=== PATIENT | male | born 1980 | race Caucasian/White ===

== ENCOUNTER 2017-05-21 22:03 | Emergency (ER) | payer SELFPAY ==
[~2017-05-21] VITALS: Ht 177.8 cm; Wt 74.8 kg
[2017-05-21 22:09] VITALS: Ht 177.8 cm; Wt 74.8 kg
[2017-05-22 01:32] VITALS: BP 109/69
== END 2017-05-22 01:32 | disposition home or self-care (01) ==
LOC: ED 22:03
DX: J11.1 Influenza due to unidentified influenza virus with other respiratory manifestations (principal)
CPT/HCPCS: 87804; J1885; Q0092

== ENCOUNTER 2019-01-21 00:40 | Inpatient (IN) | payer MEDICAID ==
[~2019-01-21] VITALS: Ht 152.4 cm; Wt 70.8 kg
[2019-01-21 00:44] VITALS: Ht 152.4 cm; Wt 70.8 kg
--- NOTE | 2019-01-21 00:58 | NUR ---
PT PRESENTS TO ED S/P INGESTING 13 TABLETS OF 10MG CYCLOBENZAPRINE AROUND 1900. PT REFUSES TO ANSWER QUESTIONS ABOUT SI/HI. PT STATES "I DON'T WANT TO BE HERE" BUT DOES NOT ELABORATE. PT STATES TO X1 EPISODE OF VOMITING BUT UNAWARE WHAT TIME AND IF THERE WERE PILLS IN HIS VOMIT. PT NOTED WITH MUSCLE CONTRACTIONS THAT HAPPEN [id number]. PT PLACED ON FULL CM, VITALS STABLE AT THIS TIME. PT DENIES PAIN. PT AWAKE AND ALERT, REFUSING TO SPEAK AT THIS TIME, RESP TACHYPNIC LUNG SOUNDS CLEAR. PT SIGNIFICANT OTHER AT BEDSIDE, STATES THAT IT TOOK THEM A WHILE TO COME IN BECAUSE PT WAS REFUSING TO COME. PT NOTED WITH ANKLE TRACKING BRACELET TO THE R ANKLE.
--- NOTE | 2019-01-21 01:16 | NUR ---
SPOKE WITH POISION CONTROL, MONITOR PT FOR ANTICHOLINERGIC EFFECTS, HYPOTENSION, SEDATION, AND SEIZURES. PER POISION CONTROL, TREAT SEIZURES WITH BENZOS CAUTIOUSLY. MONITOR AIRWAY CLOSELY. DRAW USUAL LABS AND MONITOR FOR EKG CHANGES. MONITOR FOR AT LEAST 6 HRS
--- NOTE | 2019-01-21 01:23 | NUR ---
PT MOVED TO BED 3 FOR CLOSER MONITORING.
--- NOTE | 2019-01-21 01:46 | NUR ---
PT ATTEMPTED TO PROVIDE URINE SPECIMEN WITH NO SUCCESS. PT INFORMED THAT WE NEED A URINE SPECIMEN SOON POSSIBLE.
[2019-01-21 01:55] LABS: CARBON DIOXIDE 24.3 mmol/L (21-32); CHLORIDE SERUM 101 mmol/L (98-107); CREATININE SERUM 0.8 mg/dL (0.7-1.3); GFR1 > 60 mL/min; GLUCOSE SERUM 137 mg/dL (74-106); POTASSIUM SERUM 3.2 mmol/L (3.5-5.1); SODIUM SERUM 139 mmol/L (136-145)
[2019-01-21 01:59] LABS: ALKALINE PHOSPHATASE 91 U/L (46-116); ALT/SGPT 64 U/L (16-63); AST/SGOT 23 U/L (15-37); BILIRUBIN TOTAL 0.93 mg/dL (0.20-1.00); TOTAL PROTEIN, SERUM 7.8 g/dL (6.4-8.2)
[2019-01-21 02:02] LABS: BASOPHIL % 0.6 % (0-2); PLATELET COUNT 252 x10^3mcL (130-400); RED CELL DISTRIBUTION WIDTH 12.8 % (11.5-14.5)
--- NOTE | 2019-01-21 02:34 | NUR ---
PT RESTING IN A POSITION OF COMFORT AT THIS TIME, AOX4, RESP EVEN AND UNLABORED, NO ACUTE DISTRESS NOTED. PT REMAINS IN VIEW OF NURSE'S STATION.
--- NOTE | 2019-01-21 03:53 | NUR ---
PT RESTING IN A POSITION OF COMFORT, AOX4, RESP EVEN AND UNLABORED, NO ACUTE DISTRESS NOTED.
--- NOTE | 2019-01-21 04:11 | NUR ---
PT REPORT GIVEN TO DR CASTILLO FROM TELE PSYCH.
--- NOTE | 2019-01-21 04:20 | NUR ---
TELE PSYCH EVALUATION IN PROGRESS, MALIA EMT AT BEDSIDE FOR TRANSLATION.
--- NOTE | 2019-01-21 05:30 | NUR ---
PT NO LONGER NOTED WITH MUSCLE TWITCHING.
--- NOTE | 2019-01-21 05:35 | NUR ---
ALLISON FROM POISION CONTROL CALLED TO FOLLW UP ON PT CONDITION, REPORT GIVEN.
[2019-01-21 05:59] LABS: UA SPECIFIC GRAVITY <=1.005 (1.005-1.035); microscopic required? YES; urine erythrocyte NEGATIVE (NEGATIVE)
--- NOTE | 2019-01-21 06:35 | NUR ---
ACCORDING TO DR PASCUAL, PSYCHIATRIST PT MEETS 5150 [facility]ITERIA FOR [facility] TO SELF.
--- NOTE | 2019-01-21 07:27 | NUR ---
GATHERED PATIENTS BELONGINGS PANTS SHIRTS SOCKS PHONE AND LABLED AND PUT IN RADIO ROOM PER 5150 HOLD
--- NOTE | 2019-01-21 09:10 | NUR ---
BREAKFAST TRAY OFFRED.
--- NOTE | 2019-01-21 09:52 | NUR ---
PT ATE BREAKFAST WELL, 100%. VSS.
--- NOTE | 2019-01-21 12:10 | NUR ---
PT MOVED TO BED 5.
--- NOTE | 2019-01-21 12:20 | NUR ---
LUNCH TRAY GIVEN.
--- NOTE | 2019-01-21 13:33 | NUR ---
PLACED ON 5150 HOLD BY MARTHA CALVO. PLACED ON CHART.
--- NOTE | 2019-01-21 15:20 | NUR ---
PT IN GURNEY IN RIGHT LATERAL POSITION, AWAKE ALERT, RESP E/U, NO DISTRESS. PT NOTIFIED THAT URINE IS NEEDED. URINAL AT BEDSIDE.
[2019-01-21 16:18] LABS: AMPHETAMINE QUAL UR POSITIVE (See below)
--- NOTE | 2019-01-21 17:01 | NUR ---
PT TOILETED ABOUT 500CC URINE. PT REPOSITIONS SELF. NO SOB OR CHEST PAIN. PT REQUESTED TO SPEAK TO . VERBAL CONTRACT NOT TO ARGUE ON PHONE. PT GIVEN CELL PHONE. IN NO ACUTE DISTRESS AT THIS TIME.
--- NOTE | 2019-01-21 17:13 | NUR ---
PT PROVIDED WITH DINNER
--- NOTE | 2019-01-21 17:54 | NUR ---
AT BEDSIDE. PT IN NO ACUTE DISTRESS AT THIS TIME
--- NOTE | 2019-01-21 19:06 | NUR ---
REPORT GIVEN TO ALESSANDRO FLORES TO RESUME CARE OF PT
--- NOTE | 2019-01-21 20:18 | NUR ---
PT RESTING IN BED. NO ACUTE DISTRESS NOTED. AT BEDSIDE.
--- NOTE | 2019-01-21 22:06 | NUR ---
PT DENIES PAIN. RESTING AT THIS TIME. WILL CONTINUE TO MONITOR.
--- NOTE | 2019-01-21 23:12 | NUR ---
TELE PSYCH MONITOR AT BEDSIDE.
--- NOTE | 2019-01-22 00:33 | NUR ---
PT RESTING IN BED IN POSTIION OF COMFORT. STS ALL NEEDS ATTENDED TO AT THIS TIME.
--- NOTE | 2019-01-22 01:21 | NUR ---
REPORT GIVEN TO SANRDA ASHRAF.
--- NOTE | 2019-01-22 01:21 | NUR ---
REPORT GIVEN TO SANDRA ASHRAF.
--- NOTE | 2019-01-22 01:45 | NUR ---
ADMITTED PT FROM ER 5150 HOLD SUICIDAL IDEATION.FLEXERIL OVERDOSE.A/O X4 SPEAKS K[place] ONLY.DENIES CHESTPAIN AT THIS TIME.ADMISSION CARE RENDERED.SITTER AT BEDSIDE.WILL CONTINUE TO MONITOR.
[2019-01-22 01:54] VITALS: BP 103/64
--- NOTE | 2019-01-22 04:46 | NUR ---
PT SLEPT SINCE ADMISSION.SITTER AT BEDSIDE.DENIES SUICIDAL IDEATION.NO SEIZURE ACTIVITY NOTED.PADDED RAILS IN PLACED.WILL CONTINUE TO MONITOR.
--- NOTE | 2019-01-22 06:18 | NUR ---
[facility] still actively working on finding placement for this pt. No openings overnight per nightshift. Will contact with any updates.
[2019-01-22 06:25] VITALS: BP 107/74
--- NOTE | 2019-01-22 07:20 | NUR ---
RECEIVED PT IN NO ACUTE DISTRESS. RESTING IN BED. AAOX4. RESP EVEN AND UNLABORED ON RA. SEIZURE PRECAUTIONS IN PLACE. 1:1 SITTER AT BEDSIDE. IV TO LAC, NO REDNESS OR SWELLING TO IV SITE. BED IN LOW POSITION, CALL LIGHT WITHIN REACH. WILL CONTINUE TO MONITOR.
[2019-01-22 08:53] LABS: CALCIUM 8.5 mg/dL (8.5-10.1); CARBON DIOXIDE 28.9 mmol/L (21-32); CHLORIDE SERUM 106 mmol/L (98-107); CREATININE SERUM 0.9 mg/dL (0.7-1.3); GFR1 > 60 mL/min; GLUCOSE SERUM 109 mg/dL (74-106); PHOSPHOROUS 3.3 mg/dL (2.5-4.9); POTASSIUM SERUM 4.3 mmol/L (3.5-5.1); SODIUM SERUM 141 mmol/L (136-145)
[2019-01-22 08:57] LABS: BASOPHIL % 0.3 % (0-2); PLATELET COUNT 225 x10^3mcL (130-400); RED CELL DISTRIBUTION WIDTH 13.3 % (11.5-14.5)
--- NOTE | 2019-01-22 09:11 | NUR ---
Contacted the following facilities regarding placement: [facility]: s/w Carmelo, no beds [facility]: s/w Josseline, no beds, packet faxed for waitlist. [facility]: s/w Sarahi, no beds, poss. D/Cs later today. Packet faxed for review/waitlsit. [facility]: Rang continuously, unable to leave message. [facility]: s/w Rachana, no beds at this time, packet faxed for review/waitlist. [facility]: s/w Rubén, he states the doctors are doing rounds for D/Cs, requests to fax packet for poss. openings. packet faxed for potential openings. [facility]: s/w Tonja, states no openings, requests fax packet and they will contact if their are openings.
[2019-01-22 09:37] VITALS: BP 106/72
--- NOTE | 2019-01-22 12:00 | NUR ---
PT RESTING IN BED WATCHING TV. NO ACUTE DISTRESS. SHOWERED EARLIER. DENIES SUICIDAL IDEATION. 1:1 SITTER AT BEDSIDE. VISITOR AT BEDSIDE. IV TO LAC, NO REDNESS OR SWELLING TO IV SITE. CALL LIGHT WITHIN REACH. WILL CONTINUE TO MONITOR.
--- NOTE | 2019-01-22 12:39 | NUR ---
Discount pharmacy card and list to [facility] given to patient by Ladi.
[2019-01-22 17:00] VITALS: BP 97/58
--- NOTE | 2019-01-22 18:33 | NUR ---
PT RESTING IN BED. NO ACUTE DISTRESS. DENIES SUICIDAL IDEATION. SEIZURE PRECAUTIONS. 1:1 SITTER AT BEDSIDE. SAFETY PRECAUTIONS IN PLACE. VISITOR AT BEDSIDE. BED IN LOW POSITION, CALL LIGHT WITHIN REACH. WILL ENDORSE TO ONCOMING SHIFT.
--- NOTE | 2019-01-22 19:10 | NUR ---
RECEIVED REPORT FROM DAGOBERTO FLORES. PT IS AAOX4 AND MARSHALLESE SPEAKING. PT DENIES ANY HEADACHE OR DIZZINESS AT THIS TIME. PT DENIES ANY SUICIDAL IDEATIONS AT THIS TIME. SEIZURE PRECAUTIONS ARE IN PLACE. SITTER AT BEDSIDE. FAMILY AT BEDSIDE. PT IS MED-SURG AND DENIES ANY S/S OF CHEST PAIN OR PRESSURE AT THIS TIME. PT PULSES ARE PALPABLE AND CAP REFILL <3 SEC. PT LUNG SOUNDS ARE CTA AND BREATHING IS EVEN AND UNLABORED ON RA. PT DENIES ANY SOB OR RESPIRATORY DISTRESS AT THIS TIME. PT BOWEL SOUNDS ARE ACTIVE X4. PT ABD IS SOFT AND NONDISTENDED. PT LBM: 01/21, FORMED. PT DENIES ANY N/V AT THIS TIME. PT VOIDS FREELY AND IS AMBULATORY. PT SKIN IS WARM, DRY, AND INTACT. PT IV SITE PATENT AND WNL. CALL LIGHT WITHIN REACH. BED IN LOWEST POSITION. SIDE RAILS X2 UP. WILL CONTINUE TO MONITOR.
[2019-01-22 20:38] VITALS: BP 107/72
--- NOTE | 2019-01-23 00:55 | NUR ---
ROUNDED ON PT. PT IS SLEEPING. PT BREATHING IS EVEN AND UNLABORED. NO S/S OF ACUTE DISTRESS NOTED AT THIS TIME. SITTER AT BEDSIDE. CALL LIGHT WITHIN REACH. BED IN LOWEST POSITION. SEIZURE PRECATIONS IN PLACE. SIDE RAILS X2 UP. WILL CONTINUE TO MONITOR.
--- NOTE | 2019-01-23 04:09 | NUR ---
PT IS SLEEPING IN BED. PT BREATHING EVEN AND UNLABORED. NO S/S OF ACUTE DISTRESS NOTED. CALL LIGHT WITHIN REACH. BED IN LOWEST POSITION. SIDE RAILS X2 UP. SITTER AT BEDSIDE. WILL CONTINUE TO MONITOR.
--- NOTE | 2019-01-23 05:44 | NUR ---
Follow up calls were made to [facility] facilities through out shift, still no update on bed placement and will endorse to AM shift.
[2019-01-23 06:00] VITALS: BP 110/62
--- NOTE | 2019-01-23 06:09 | NUR ---
[facility] to continue actively looking for placement for this pt. Will contact with suresh updates. No openings overnight per nightshift.
[2019-01-23 06:57] LABS: BASOPHIL % 0.3 % (0-2); PLATELET COUNT 220 x10^3mcL (130-400); RED CELL DISTRIBUTION WIDTH 12.7 % (11.5-14.5)
[2019-01-23 06:58] LABS: CALCIUM 8.5 mg/dL (8.5-10.1); CHLORIDE SERUM 104 mmol/L (98-107); CREATININE SERUM 0.9 mg/dL (0.7-1.3); GFR1 > 60 mL/min; GLUCOSE SERUM 104 mg/dL (74-106); MAGNESIUM 2.1 mg/dL (1.8-2.4); PHOSPHOROUS 4.2 mg/dL (2.5-4.9); POTASSIUM SERUM 3.6 mmol/L (3.5-5.1); SODIUM SERUM 140 mmol/L (136-145)
--- NOTE | 2019-01-23 07:00 | NUR ---
RECIEVED PT RESTING IN BED WITH NO S/S OF PAIN OR DISTRESS. SITTER AT BEDSIDE. IV INTACT AND PATENT TO THE LAC, NO REDNESS OR INFLAMMATION NOTED. SAFETY PRECAUSTION IN PLACE, CALL LIGHT WITHIN REACH, WILL MONITOR.
[2019-01-23 08:32] VITALS: BP 104/67
--- NOTE | 2019-01-23 12:21 | NUR ---
PT STABEL WITH NO C/O PAIN ,DISTRESS, OR SI. SITTER AT BEDSIDE. SAFETY PRECAUTIONS IN PLACE, CALL LIGHT WITHIN REACH, WILL MONITOR.
[2019-01-23 18:01] VITALS: BP 115/78
--- NOTE | 2019-01-23 18:15 | NUR ---
PT STABLE WITH NO C/O PAIN, DISTRESS, OR SI. SITTER AND FAMILY AT BEDSIDE. ALL CARES TOLERATED WELL. VS WNL. A/O X4. LAC IV INTACT AND PATENT WITH NO REDNESS OR INFLAMMATION NOTED. SAFETY PRECAUTIONS IN PLACE, CALL LIGHT WITHIN REACH, WILL ENDORSE TO NIGHT NURSE.
--- NOTE | 2019-01-23 18:17 | NUR ---
Received report from outgoing shift. Patient needing re-eval for psych. Await outcome of re-eval for further placement
--- NOTE | 2019-01-23 19:00 | NUR ---
RECEIVED PT LAYING IN BED, NO ACUTE DISTRESS OBSERVED, DENIES PAIN OR DISCOMFORT. CALM AND COOPERATIVE WITH CARE AT THIS TIME, 5150 PER PD, AWAITING DR. FLOR CONSULT. DENIES SI OR HI AT THIS TIME. SITTER AT BEDSIDE TO ENSURE SAFETY. AA/OX4, ABLE TO MAKE NEEDS KNOWN, SPEECH CLEAR AND APPRORIATE, SEIZURE PRECAUTIONS IN PLACE. MED-SURG, NO TELE, NO CP. PULSES PALPABLE AND EQUAL THROUGHOUT, NO EDEMA. BREATHING ON RA, EVEN AND UNLABORED, NO SOB OR DYSPNEA OBSERVED. DENIES N/V/D. VODIS URINE FREELY. AMBULATORY AND ABLE TO REPOSITION SELF IN BED. IV TO LAC IN PLACE, DRY, PATENT, INTACT, S/L, NO S&S PHLEBITIS OR INFILTRATION WHEN FLUSHED WITH NS. COMFORT AND SAFETY MEASURES IN PLACE. ALL NEEDS ASSESSED AND ATTENDED TO. CALL LIGHT WITHIN REACH. WILL CONTINUE TO MONITOR
[2019-01-23 19:49] VITALS: BP 105/66
--- NOTE | 2019-01-23 20:32 | NUR ---
PT C/O STOMACH PAIN. MEDICATE PRN PRN TYLENOL PER EMAR
[2019-01-24 05:00] VITALS: BP 98/52
--- NOTE | 2019-01-24 06:05 | NUR ---
NO SIGNIFICANT CHANGES TO REPORT, PT COMPLIED WITH NURSING CARE THROUGHOUT THE SHIFT WITH NO ACUTE EVENTS OVERNIGHT. SITTER REMAINS AT BEDSIDE TO ENSURE SAFETY. NO ACUTE DISTRESS OBSERVED AT THIS TIME. PT LAYING IN BED, BREATHING EVEN AND UNLABORED. COMFORT AND SAFETY MEASURES MAINTAINED. ALL NEEDS ASSESSED AND ATTENDED TO. CALL LIGHT WITHIN REACH. WILL CONTINUE TO MONITOR AND ENDORSE CARE TO DAY SHIFT NURSE
--- NOTE | 2019-01-24 06:10 | NUR ---
DR. TAYLOR AT BEDSIDE TO SEE PT.
--- NOTE | 2019-01-24 07:30 | NUR ---
PATIENT RESTING IN BED COMFORTABLY. PATIENT A/OX4, DENIES HEADACHE. PATIENT PLACED ON SEIZURE PRECAUTION. PATIENT DENIES PAIN. NO ACUTE DISTRESS, DENIES SOB. PATIENT APPEARS DEPRESSED, PATIENT CALM & COOPERATIVE. DENIES THOUGHTS OF SUICIDE, DENIES PLAN. ALL QUESTIONS AND CONCERNS ADDRESSED. CALL LIGHT WITHIN REACH, BED IN LOW POSITION, WILL CONTINUE TO MONITOR.
[2019-01-24 10:37] VITALS: BP 107/68
[2019-01-24 13:00] VITALS: BP 107/68
--- NOTE | 2019-01-24 13:15 | NUR ---
PATIENT RECEIVED COPY OF D/C INSTRUCTIONS, PATIENT UNDERSTANDS AND AGREES WITH PLAN OF CARE & D/C INSTRUCTIONS, INCLUDING MEDICATIONS & FOLLOW UP WITH PCP/PCYCHIATRIST. ALL QUESTIONS AND CONCERNS ADDRESSED. ALL NEEDS MET AT THIS TIME.
--- NOTE | 2019-01-24 13:30 | NUR ---
ARMBAND AND IV REMOVED, CATH INTACT. PATIENT TAKEN DOWN BY DIRECTORY ASSISTANCE OPERATOR. PATIENT TOOK HOME ALL PERSONAL BELONGINGS.
--- NOTE | 2019-01-24 15:00 | NUR ---
WAS NOTIFIED BY GERSON FROM [facility], THAT BED WAS MADE AVAILABLE FOR PATIENT, [address], ADDRESS: [address] [place] [address], [id number]. REPORT TO BE GIVEN TO THE FOLLOWING NUMBER # . WILL ONLY ACCEPT PATIENT IF, PATIENT ARRIVES BEFORE 1700. WILL SET UP TRANSPORT AT THIS TIME.
== END 2019-01-24 14:42 | disposition home or self-care (01) | DRG 812 ==
LOC: ED 00:40 → MU 01-22 00:33
PROVIDERS: Emergency Medicine; ADMIT General Practice
DX: T43.621A Poisoning by amphetamines, accidental (unintentional), initial encounter (principal); G92 Toxic encephalopathy; Y92.89 Other specified places as the place of occurrence of the external cause; F32.9 Major depressive disorder, single episode, unspecified; E87.6 Hypokalemia; R45.851 Suicidal ideations
CPT/HCPCS: G0378; G0480; J2405; J7030; Q0092